=== PATIENT | female | born 2000 | race Caucasian/White ===

== ENCOUNTER 2021-03-25 08:46 | Emergency (ER) | payer OTHER, SELFPAY ==
[2021-03-25 08:57] VITALS: BP 133/86; PULSE 98; RESP 18; TEMP 36.7; O2SAT 100
--- NOTE | 2021-03-25 09:03 | ED.GENADULT ---
HPI - General Adult General Chief complaint: Allergic Reaction Stated complaint: allergic reaction Source: patient Mode of arrival: ambulatory Limitations: no limitations History of Present Illness HPI narrative: Patient presents for evaluation of lip swelling since yesterday morning. She states she woke from sleep at 6 AM with her symptoms. Symptoms have been variable since that time. Today she noted a mild sore throat and a pruritic rash to the anterior aspect of the neck. She denies any new foods, environmental allergens, use of new topical products. No difficulty breathing or swallowing. She took an unknown OTC allergy medication. She also took an unknown medication for a cold sore this morning. She indicates she came in for evaluation so she could receive an excuse from work. LMP one week ago. Related Data Allergies Allergy/AdvReac Type Severity Reaction Status Date / Time No Known Allergies Allergy Unverified 03/25/21 08:48 Review of Systems Review of Systems: Narrative: CONSTITUTIONAL: Denies fever, chills, or sweats. EYES: Denies visual changes, redness, or discharge. ENT: Reports sore throat and lip swelling. Denies rhinorrhea, congestion, or otalgia. CARDIOVASCULAR: Denies chest pain, palpitations, or edema. RESPIRATORY: Denies cough or dyspnea. GASTROINTESTINAL: Denies abdominal pain, nausea, vomiting, or diarrhea. GENITOURINARY: Denies dysuria or hematuria. SKIN: Reports pruritic rash to neck. MUSCULOSKELETAL: Denies back pain, joint pain, or myalgia. NEUROLOGIC: Denies headache, numbness, dizziness, or weakness. PSYCHIATRIC: Denies anxiety or depression. [facility] Past Medical History Medical History (Updated 03/25/21 @ 09:11 by Rj Richards, SHIKHA, ) Anemia Surgical History Surgical History No pertinent past surgical history Family History Family History Mother No pertinent past medical history Social History Social History (Updated 03/25/21 @ 09:07 by SHIKHA Sexton, ) Smoking status: Never smoker Alcohol intake: never Substance use: never Living arrangements: with family Gender identity (if verbalized by the patient): Female Spiritual care concerns: No Exam Narrative: Exam Narrative: GENERAL: Well-appearing, well-nourished, and in no acute distress. HEAD: Normocephalic, atraumatic. EYES: PERRLA and EOMI. ENT: Nares clear, no rhinorrhea or epistaxis. Mucous membranes moist. Oropharynx without tonsillar hypertrophy exudate or other lesions. Bilateral TMs pearly diaz nonbulging NECK: Supple. No adenopathy or masses. No carotid bruits or JVD CHEST: Clear to auscultation. No respiratory distress. No wheezes rales or rhonchi HEART: Regular rate and rhythm. No murmur heard. Normal peripheral pulses. ABDOMEN: Soft, nontender, nondistended, normal active bowel sounds. EXTREMITIES: Normal range of motion. No edema. SKIN: Warm, dry, no rash. NEURO: No focal deficits. Alert and oriented x3. PSYCH: Normal mood and affect. Course Course Emergency Course: This is a 20-year-old female who presents with lip swelling. Physical exam was unremarkable. Airway was patent and she demonstrated no evidence of dyspnea. Strep test was obtained due to sore throat and that was negative. I dn not appreciate any significant swelling but we can place her on medrol dose adam and vistaril. This may also help with anxiety. Vital Signs Vital signs: Vital Signs Temperature 36.7 C 03/25/21 08:57 Pulse Rate 98 03/25/21 08:57 Respiratory Rate 18 03/25/21 08:57 Blood Pressure 133/86 03/25/21 08:57 Pulse Oximetry 100 03/25/21 08:57 Temperature 36.7 C 03/25/21 09:10 Pulse Rate 98 03/25/21 09:10 Respiratory Rate 18 03/25/21 09:10 Blood Pressure 133/86 03/25/21 09:10 Pulse Oximetry 100 03/25/21 09:10 Medical Decision Making Diffe
[2021-03-25 09:10] VITALS: BP 133/86; PULSE 98; RESP 18; TEMP 36.7; O2SAT 100
== END 2021-03-25 09:22 | disposition home or self-care (01) ==
PROVIDERS: Emergency Provider Nurse Practitioner
DX: R22.0 Localized swelling, mass and lump, head (principal); J02.9 Acute pharyngitis, unspecified; R21 Rash and other nonspecific skin eruption; T78.40XA Allergy, unspecified, initial encounter
CPT/HCPCS: 87081; 87880; 99213; G0463

== ENCOUNTER 2024-05-20 20:59 | Emergency (ER) | payer OTHER, SELFPAY ==
[2024-05-20 21:01] VITALS: BP 111/69; PULSE 90; RESP 16; TEMP 36.7; O2SAT 98
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
[2024-05-20] MEDS: TETANUS,DIPHTHERIA,AC PERTUSSIS ADULT (0.5 ML) BOOSTRIX IM (22:03)
[2024-05-20 23:08] VITALS: BP 114/70; PULSE 71; RESP 15; O2SAT 100
== END 2024-05-20 23:08 | disposition home or self-care (01) ==
PROVIDERS: Emergency Provider Physician Assistant; PCP Nurse Practitioner
DX: S61.241A Puncture wound with foreign body of left index finger without damage to nail, initial encounter (principal); Z23 Encounter for immunization; S61.216A Laceration without foreign body of right little finger without damage to nail, initial encounter; W45.8XXA Other foreign body or object entering through skin, initial encounter
CPT/HCPCS: 12001; 90471; 90715; 99282